=== PATIENT | female | born 1955 | race Caucasian/White ===

== ENCOUNTER 2023-07-08 14:22 | Observation (INO) | payer MEDICARE, OTHER ==
[2023-07-08] MEDS ORDERED: SODIUM CHLORIDE 0.9% 1,000 ML IV STA (15:16)
[2023-07-08] MEDS ORDERED: ACETAMINOPHEN TAB 500 MG TAB PO STA (15:17)
[2023-07-08 15:45] LABS: Basophils % (A) 1 %; Eosinophils # (A) 0.1 k/uL (0-0.7); Eosinophils % (A) 2 %; HCT 33.5 % (34.0-46.0); HGB 11.2 gm/dL (11.4-16.0); Lymphocytes # (A) 0.8 k/uL (1.0-4.8); Lymphocytes % (A) 20 %; MCH 34.1 pg (25.0-35.0); MCHC 33.4 g/dL (31.0-37.0); Macrocytosis Slight; Mean Platelet Volume 8.3; Monocytes # (A) 0.3 k/uL (0-1.0); Monocytes % (A) 7 %; Neutrophils % (A) 70 %; Platelet Count 164 k/uL (150-450); RBC 3.29 m/uL (3.80-5.40); RDW 12.8 % (11.5-15.5); WBC 4.3 k/uL (3.8-10.6)
--- NOTE | 2023-07-08 15:51 | XR ---
EXAMINATION TYPE: XR tibia fibula RT DATE OF EXAM: 07/08/2023 3:28 PM CLINICAL INDICATION:Female, 67 years old with history of trauma, dog bite. COMPARISON: None. TECHNIQUE: The right tibia/fibula was examined in AP and lateral projections. FINDINGS: No evidence of any acute osseous pathology, joint dislocation, or osseous erosion. Large so ft tissue defect noted involving the posterior leg. No evidence of retained radiopaque foreign body. IMPRESSION: 1. No evidence of acute osseous process. 2. Large residual soft tissue defect involving the posterior leg without evidence of retained radiopa que foreign body.
[2023-07-08 15:56] LABS: ALT 18 U/L (4-34); AST 26 U/L (14-36); African American GFR (CKD) 62 (>60 ml/min/1.73 sqM); Albumin 4.1 g/dL (3.5-5.0); Alkaline Phosphatase 50 U/L (38-126); Anion Gap 10 mmol/L; Blood Urea Nitrogen 18 mg/dL (7-17); Calcium 9.3 mg/dL (8.4-10.2); Carbon Dioxide 26 mmol/L (22-30); Chloride 105 mmol/L (98-107); Glucose 96 mg/dL (74-99); INR 0.9 (<1.2); Non-African American GFR(CKD) 54 (>60 ml/min/1.73 sqM); Partial Thromboplastin Time 22.3 sec (22.0-30.0); Potassium 4.6 mmol/L (3.5-5.1); Prothrombin Time 9.7 sec (9.0-12.0); Sodium 141 mmol/L (137-145); Total Bilirubin 0.6 mg/dL (0.2-1.3); Total Protein 6.7 g/dL (6.3-8.2)
[2023-07-08 15:58] LABS: Appearance,Urine Clear (Clear); Bilirubin,Urine Negative (Negative); Blood,Urine Negative (Negative); Color,Urine Colorless; Glucose,Urine (UA) Negative (Negative); Ketones,Urine Negative (Negative); Leukocyte Esterase,Urine Negative (Negative); Nitrite,Urine Negative (Negative); PH, Urine 7.5 (5.0-8.0); Protein,Urine Negative (Negative); Specific Gravity,Urine 1.005 (1.001-1.035); Urobilinogen,Urine <2.0 mg/dL (<2.0)
[2023-07-08] MEDS ORDERED: LIDOCAINE 2%-EPI 1:100,000 20 ML VIAL SQ STA (16:26)
--- NOTE | 2023-07-08 16:37 | P.PN ---
Progress Note - Text Progress Note Date: 07/08/23 Spoke with ED about pt. They will wash and provisionally close wound. We will plan on OR tomorrow for wash and definitive closure or temporization with wound vac for plastic surgery definitive closure. [email or web address] Cont abx. Pain control as needed.
[2023-07-08] MEDS ORDERED: HYDROmorphone 1 MG/ML 1 ML SYRINGE IVP STA (16:59)
[2023-07-08] MEDS ORDERED: BACITRACIN OINT 1 EACH PACKET TOPICAL ONE (18:38)
--- NOTE | 2023-07-08 18:57 | ED ---
Animal Bite HPI - General Chief Complaint: Animal Bite Stated Complaint: Dog bite Time Seen by Provider: 07/08/23 14:52 Source: patient Mode of arrival: ambulatory Limitations: no limitations - History of Present Illness Initial Comments: 67-year-old female presented to the ED with a chief complaint of dog bite. Patient states this afternoon was going to her friend's house when her friend's dog became protective over something and ended up biting the patient's right calf. Was initially evaluated at [facility] however was sent here due to to concerns with needing surgical management. Patient was provided a gram of Rocephin at that facility and tetanus was also updated. No other injuries at this time. Dog was vaccinated for rabies. No other complaints. - Related Data Home Medications Medication Instructions Recorded Confirmed Clopidogrel [Plavix] 75 mg PO DAILY 07/08/23 07/08/23 Simvastatin [Zocor] 40 mg PO HS 07/08/23 07/08/23 Vitamin C(Unknown Dose) 1 tab PO DAILY 07/08/23 07/08/23 Vitamin D3(Unknown Dose) 1 tab PO DAILY 07/08/23 07/08/23 allopurinoL [Zyloprim] 300 mg PO DAILY 07/08/23 07/08/23 busPIRone HCL 15 mg PO BID 07/08/23 07/08/23 traMADol HCL 50 mg PO HS 07/08/23 07/08/23 Allergies Allergy/AdvReac Type Severity Reaction Status Date / Time codeine AdvReac Nausea & Verified 07/08/23 16:11 Vomiting Review of Systems ROS Statement: Those systems with pertinent positive or pertinent negative responses have been documented in the HPI. ROS Other: All systems not noted in ROS Statement are negative. Past Medical History Additional Past Medical History / Comment(s): Aortic bypass History of Any Multi-Drug Resistant Organisms: None Reported Past Psychological History: No Psychological Hx Reported Smoking Status: Never smoker Past Alcohol Use History: None Reported Past Drug Use History: None Reported General Exam Limitations: no limitations General appearance: alert, in no apparent distress Head exam: Present: atraumatic, normocephalic Neck exam: Present: normal inspection Respiratory exam: Present: normal lung sounds bilaterally Cardiovascular Exam: Present: regular rate, normal rhythm Extremities exam: Present: other (Strength and sensation at the distal right lower extremity intact. Patient does have partial skin avulsion of the right calf measuring approximately 10 x 6 x 4 x 4 cm with significant soft tissue involvement. Gastrocnemius easily viewable however able to plantar and dorsiflex without difficulty.) Neurological exam: Present: alert, oriented X3 Skin exam: Present: warm, dry Course Vital Signs 07/08/23 07/08/23 07/08/23 14:36 15:47 16:01 Temperature 98.2 F 98.1 F Pulse Rate 84 65 59 L Respiratory 18 18 17 Rate Blood Pressure 113/53 116/52 116/49 O2 Sat by Pulse 98 98 98 Oximetry 07/08/23 07/08/23 07/08/23 17:00 17:15 18:45 Temperature Pulse Rate 72 74 61 Respiratory 16 17 17 Rate Blood Pressure 117/49 135/64 115/60 O2 Sat by Pulse 99 98 96 Oximetry Procedures - Laceration Laceration #1 Description: flap, avulsion, irregular Depth: involves muscle layer Sedation/Analgesia: none Anesthetic Used: lidocaine 2%, with epi Anesthesia Technique: local infiltration Amount (mls): 12 Pre-repair: wound explored, irrigated extensively Type of Sutures: nylon Size of Sutures: 4-0 Number of Sutures: 27 Technique: simple, interrupted Patient Tolerated Procedure: well, no complications Additional Comments: She had wound loosely approximated. Tolerated well with no complications. Medical Decision Making - Medical Decision Making Was pt. sent in by a medical professional or institution ([facility], TRACTOR EXPERT, urgent care, hospital, or care home...) When possible be specific @ -[facility] Did you speak to anyone other than the patient for history (EMS, parent, family, police, friend...)? What history was obtained from this source @ -No Did you review nursing and triage notes (agree or disagree)? Why? @ -I reviewed and agree with nursing and triage notes Were old charts reviewed (outside hosp., previous admission, EMS record, old EKG , old radiological studies, urgent care reports/EKG's, care home records)? Report findings @ -Charts from [facility] reviewed. For further details please see HPI. Differential Diagnosis (chest pain, altered mental status, abdominal pain women, abdominal pain men, vaginal bleeding, weakness, fever, dyspnea, syncope, headache, dizziness, GI bleed, back pain, seizure, CVA, palpatations, mental health, musculoskeletal)? @ -Differential Musculoskeletal Muscular strain, contusion, ligament sprain, fracture, arthritis, septic arthritis, bursitis, cellulitis, muscle spasm, nerve compression, DVT, arterial occlusion, herpes zoster, electrolyte abnormality, tumor.... This is not meant to be in all inclusive list EKG interpreted by me (3pts min.). @ -None done at this time. Ordered X-rays interpreted by me (1pt min.). @ -X-ray showed no evidence of fracture however did show soft tissue defect. No foreign objects visualized on x-ray. CT interpreted by me (1pt min.). @ -None done U/S interpreted by me (1pt. min.). @ -None done What testing was considered but not performed or refused? (CT, X-rays, U/S, labs)? Why? @ -None What meds were considered but not given or refused? Why? @ -None Did you discuss the management of the patient with other professionals (professionals i.e. , PA, TRACTOR EXPERT, lab, RT, psych nurse, social services coordinator, taker off, teacher, policy officer, pillowcase folder)? Give summary @ -Case discussed with Jh Candelario PA-C of orthopedic surgery, who advised speaking to general surgery. Spoke to Dr. Aviles, who advised speaking to orthopedic surgery. Spoke to Dr. Landeros of orthopedic surgery, who advised wash out and loose approximation in the ER. Will in the patient to the OR tomorrow for formal washout and debridement. Was smoking cessation discussed for >3mins.? @ -No Was critical care preformed (if so, how long)? @ -No Were there social determinants of health that impacted care today? How? (Homelessness, low income, unemployed, alcoholism, drug addiction, transportation, low edu. Level, literacy, decrease access to med. care, usp, rehab)? @ -No Was there de-escalation of care discussed even if they declined (Discuss DNR or withdrawal of care, Hospice)? DNR status @ -No What co-morbidities impacted this encounter? (DM, HTN, Smoking, COPD, CAD, Cancer, CVA, ARF, Chemo, Hep., AIDS, mental health diagnosis, sleep apnea, morbid obesity)? @ -None Was patient admitted / discharged? Hospital course, mention meds given and route, prescriptions, significant lab abnormalities, going to OR and other pertinent info. @ -Admission 67-year-old female presenting from [facility] after dog bite to right calf. Sent to this facility due to needing surgical intervention. Tetanus was updated at that facility. Also was given 1 g of Rocephin there. Patient had wound irrigated thoroughly here in the ER with iodine solution mixed with sterile saline and additional sterile saline irrigation. Laceration loosely approximated and covered with antibiotic ointment and dressed. Provided 2 g of Ancef here. Will be admitted to surgical services for formal washout and debridement tomorrow. Discussed plan of care with patient who is in agreement. Undiagnosed new problem with uncertain prognosis? @ -No Drug Therapy requiring intensive monitoring for toxicity (Heparin, Nitro, Insulin, Cardizem)? @ -No Were any procedures done? @ -Yes, please see procedure note. Diagnosis/symptom? @ -Dog bite to right calf Acute, or Chronic, or Acute on Chronic? @ -Acute Uncomplicated (without systemic symptoms) or Complicated (systemic symptoms)? @ -Complicated Side effects of treatment? @ -No Exacerbation, Progression, or Severe Exacerbation? @ -No Poses a threat to life or bodily function? How? (Chest pain, [place], [place], pneumonia, PE, COPD, DKA, ARF, appy, cholecystitis, CVA, Diverticulitis, Homicidal, Suicidal, threat to staff... and all critical care pts) @ -No - Lab Data Result diagrams: 07/08/23 15:34 07/08/23 15:34 Lab Results 07/08/23 07/08/23 07/08/23 Range/Units 15:34 15:34 15:34 WBC 4.3 (3.8-10.6) k/uL RBC 3.29 L (3.80-5.40) m/uL Hgb 11.2 L (11.4-16.0) gm/dL Hct 33.5 L (34.0-46.0) % MCV 102.0 H (80.0-100.0) fL MCH 34.1 (25.0-35.0) pg MCHC 33.4 (31.0-37.0) g/dL RDW 12.8 (11.5-15.5) % Plt Count 164 (150-450) k/uL MPV 8.3 Neutrophils % 70 % Lymphocytes % 20 % Monocytes % 7 % Eosinophils % 2 % Basophils % 1 % Neutrophils # 3.0 (1.3-7.7) k/uL Lymphocytes # 0.8 L (1.0-4.8) k/uL Monocytes # 0.3 (0-1.0) k/uL Eosinophils # 0.1 (0-0.7) k/uL Basophils # 0.0 (0-0.2) k/uL Macrocytosis Slight PT 9.7 (9.0-12.0) sec INR 0.9 (<1.2) APTT 22.3 (22.0-30.0) sec Sodium (137-145) mmol/L Potassium (3.5-5.1) mmol/L Chloride (98-107) mmol/L Carbon Dioxide (22-30) mmol/L Anion Gap mmol/L BUN (7-17) mg/dL Creatinine (0.52-1.04) mg/dL Est GFR (CKD-EPI)AfAm (>60 ml/min/1.73 sqM) Est GFR (CKD-EPI)NonAf (>60 ml/min/1.73 sqM) Glucose (74-99) mg/dL Calcium (8.4-10.2) mg/dL Total Bilirubin (0.2-1.3) mg/dL AST (14-36) U/L ALT (4-34) U/L Alkaline Phosphatase (38-126) U/L Total Protein (6.3-8.2) g/dL Albumin (3.5-5.0) g/dL Urine Color Colorless Urine Appearance Clear (Clear) Urine pH 7.5 (5.0-8.0) Ur Specific [place] 1.005 (1.001-1.035) Urine Protein Negative (Negative) Urine Glucose (UA) Negative (Negative) Urine Ketones Negative (Negative) Urine Blood Negative (Negative) Urine Nitrite Negative (Negative) Urine Bilirubin Negative (Negative) Urine Urobilinogen <2.0 (<2.0) mg/dL Ur Leukocyte Esterase Negative (Negative) Blood Type Blood Type Confirm Blood Type Recheck Bld Type Recheck Status Antibody Screen Spec Expiration Date 07/08/23 07/08/23 07/08/23 Range/Units 15:34 15:45 15:50 WBC (3.8-10.6) k/uL RBC (3.80-5.40) m/uL Hgb (11.4-16.0) gm/dL Hct (34.0-46.0) % MCV (80.0-100.0) fL MCH (25.0-35.0) pg MCHC (31.0-37.0) g/dL RDW (11.5-15.5) % Plt Count (150-450) k/uL MPV Neutrophils % % Lymphocytes % % Monocytes % % Eosinophils % % Basophils % % Neutrophils # (1.3-7.7) k/uL Lymphocytes # (1.0-4.8) k/uL Monocytes # (0-1.0) k/uL Eosinophils # (0-0.7) k/uL Basophils # (0-0.2) k/uL Macrocytosis PT (9.0-12.0) sec INR (<1.2) APTT (22.0-30.0) sec Sodium 141 (137-145) mmol/L Potassium 4.6 (3.5-5.1) mmol/L Chloride 105 (98-107) mmol/L Carbon Dioxide 26 (22-30) mmol/L Anion Gap 10 mmol/L BUN 18 H (7-17) mg/dL Creatinine 1.08 H (0.52-1.04) mg/dL Est GFR (CKD-EPI)AfAm 62 (>60 ml/min/1.73 sqM) Est GFR (CKD-EPI)NonAf 54 (>60 ml/min/1.73 sqM) Glucose 96 (74-99) mg/dL Calcium 9.3 (8.4-10.2) mg/dL Total Bilirubin 0.6 (0.2-1.3) mg/dL AST 26 (14-36) U/L ALT 18 (4-34) U/L Alkaline Phosphatase 50 (38-126) U/L Total Protein 6.7 (6.3-8.2) g/dL Albumin 4.1 (3.5-5.0) g/dL Urine Color Urine Appearance (Clear) Urine pH (5.0-8.0) Ur Specific [place] (1.001-1.035) Urine Protein (Negative) Urine Glucose (UA) (Negative) Urine Ketones (Negative) Urine Blood (Negative) Urine Nitrite (Negative) Urine Bilirubin (Negative) Urine Urobilinogen (<2.0) mg/dL Ur Leukocyte Esterase (Negative) Blood Type A Positive Blood Type Confirm A Positive Blood Type Recheck No Previous Record Bld Type Recheck Status CABO Indicated Antibody Screen NEGATIVE Spec Expiration Date 07/11/20232349 Disposition Clinical Impression: Dog bite Disposition: ADMITTED IP TO THIS [facility] Condition: Good Instructions (If sedation given, give patient instructions): Animal Bite (ED) Referrals: Chirag Silveira MD [Primary Care Provider] - 1-2 days Time of Disposition: 16:21
[2023-07-08] MEDS ORDERED: NALOXONE 0.4 MG/ML 1 ML VIAL IV PRN (19:08)
[2023-07-08] MEDS ORDERED: ONDANSETRON 4 MG/2 ML VIAL IVP PRN (19:08)
[2023-07-08] MEDS ORDERED: ACETAMINOPHEN TAB 325 MG TAB PO PRN (19:08)
[2023-07-08] MEDS ORDERED: HYDROmorphone 2 MG TAB PO PRN (19:08)
[2023-07-08] MEDS ORDERED: HYDROmorphone 0.5 MG/0.5 ML SYRINGE IVP PRN (19:08)
[2023-07-08] MEDS ORDERED: SODIUM CHLORIDE 0.9% 1,000 ML IV SCH (19:15)
--- NOTE | 2023-07-09 07:31 | P.HPOR ---
History of Present Illness H&P Date: 07/09/23 Chief Complaint: Dog bite RLE 67 yo female presented as transfer from [facility] after sustaining a dog bite to her RLE on the posterior aspect of her calf. Due to extensive tissue damage she was sent down for evaluation. she states pain with back behind her right knee pain with the bite was presented backside of her right calf. Denies any numbness or tingling. Denies any other symptoms at this time. She currently takes aspirin and Plavix for her aortic stent. She is otherwise relatively healthy. Review of Systems 14 points review of systems completed and as stated in HPI, all other systems reviewed are negative. Past Medical History Additional Past Medical History / Comment(s): Aortic bypass History of Any Multi-Drug Resistant Organisms: None Reported Past Psychological History: No Psychological Hx Reported Smoking Status: Never smoker Past Alcohol Use History: None Reported Past Drug Use History: None Reported Medications and Allergies Home Medications Medication Instructions Recorded Confirmed Type Clopidogrel [Plavix] 75 mg PO DAILY 07/08/23 07/08/23 History Simvastatin [Zocor] 40 mg PO HS 07/08/23 07/08/23 History Vitamin C(Unknown Dose) 1 tab PO DAILY 07/08/23 07/08/23 History Vitamin D3(Unknown Dose) 1 tab PO DAILY 07/08/23 07/08/23 History allopurinoL [Zyloprim] 300 mg PO DAILY 07/08/23 07/08/23 History busPIRone HCL 15 mg PO BID 07/08/23 07/08/23 History traMADol HCL 50 mg PO HS 07/08/23 07/08/23 History Allergies Allergy/AdvReac Type Severity Reaction Status Date / Time codeine AdvReac Nausea & Verified 07/08/23 16:11 Vomiting Physical Examination Osteopathic Statement: *. No significant issues noted on an osteopathic structural exam other than those noted in the History and Physical/Consult. Physical Exam: -Patient is alert and oriented 3 appears well-nourished well-hydrated is in no acute distress. They do not appear septic. -There is TTP Around the right calf where the bite is - 15 cm curvilinear incision around the right posterior calf secondary to dog bite. Fat and muscle tissue involved. -Upper extremities show [5] out of 5 strength in all major muscle groups. [##EXCEPT] -Lower extremities with [5] out of 5 strength in all major muscle groups right dorsiflexion plantar flexion secondary to pain from the bite -There is [FROM] that is [painless] of the b/l UE and LE in all major joints. negative logroll bilaterally -They are intact to light touch sensation in C5 to T1 and L2 to S1 nerve distribution. -DTR [2]/4 all upper and lower extremities -Patient has palpable distal pulses all 4 ext -Compartments are soft and compressible. -Patient shows a negative Hector's [-Neg Hoffmans b/l] [-Neg Clonus b/l] [-Neg babinski b/l] Cranial nerves II through XII are grossly intact. Results Imaging of the right tib-fib demonstrates no fracture soft tissue disruption posteriorly noted. Alignment stable. - Labs Labs: Abnormal Lab Results - Last 24 Hours (Table) 07/08/23 07/08/23 Range/Units 15:34 15:34 RBC 3.29 L (3.80-5.40) m/uL Hgb 11.2 L (11.4-16.0) gm/dL Hct 33.5 L (34.0-46.0) % MCV 102.0 H (80.0-100.0) fL Lymphocytes # 0.8 L (1.0-4.8) k/uL BUN 18 H (7-17) mg/dL Creatinine 1.08 H (0.52-1.04) mg/dL H & H 07/08/23 Range/Units 15:34 Hgb 11.2 L (11.4-16.0) gm/dL Hct 33.5 L (34.0-46.0) % Coagulation 07/08/23 Range/Units 15:34 INR 0.9 (<1.2) Result Diagrams: 07/08/23 15:34 07/08/23 15:34 Assessment and Plan Assessment: 67-year-old female complex laceration right posterior calf secondary to dog bite Plan: Orthopedic Surgery Risk Review Iva Calhoun is a 67-year-old female presenting for evaluation of sudden onset right posterior calf pain, inability to ambulate after dog bite/attack. It was my pleasure to have seen and examined Iva Calhoun . In our visit today we have had a chance to go over subjective complaints, physical examination findings and treatments including the natural course history without intervention and various interventional options. Her imaging demonstrates soft tissue disruption and posterior calf right no fracture. On physical exam, Iva Calhoun demonstrates pain with motion of right lower extremity secondary to the dog bite and extensive tissue damage, which is NV intact at this time. I have explained to the patient that this fracture needs stabilization. Based on the patients imaging, physical exam, and the rapid progression and disabling nature of her symptoms, at this time I recommend surgery in the form or a: irrigation and debridement right lower extremity with primary closure I discussed the risk and benefits of this procedure at length with Iva Calhoun . Questions were invited and answered, and the patient wishes to proceed as outlined below. Currently, I am recommendin. irrigation and debridement right lower extremity with primary closure 2. Review of surgical risks and benefits as well as an educational packet on the proposed surgical procedure. Risks: All surgical procedures come with inherent risks, including those related to positioning, anesthesia, intraoperative findings, and postoperative complications. It is important to understand that surgery does not come with any guarantee of a successful outcome as complications and adverse events are always possible. The patient was given a handout discussing the surgical procedure and risks associated with the intervention, both of which were discussed with the patient. These risks include but are not limited to the following: - Experiencing same, different or even worse symptoms compared to before surgery. - Requiring further surgery or other forms of treatment presently or at some time in the future . - On an extreme but fortunately relatively rare basis severe complication such as blindness, stroke, heart attack, temporary and/or permanent nerve injury, paralysis, coma, or may occur, sometimes without known explanation. - Surgical complications may include but are not limited to risk of infection, fluid accumulation in the surgical dissection site, including a seroma or hematoma, that requires additional surgery, wound drainage, bleeding, new numbness or weakness, vision changes/loss, spinal fluid leakage, non-healing and/or infected incision, headaches, difficulty or inability to swallow, hoarseness, hemopneumothorax, pneumothorax, injury to nerves, spinal cord, b lood vessels, lymphatics or other vital organs (i.e., bowel injury, injury to the great vessels); heterotopic bone formation; complications related to the hardware such as screws, rods, including misplaced hardware, device failure, hardware fracture/breakage, or hardware loosening; retained surgical instrumentations or devices and the need for further surgery. - Medical risks of the planned surgery include but are not limited to generalized Infections to the whole body or local areas outside of the surgical site (sepsis), heart attack, bleeding, anaphylaxis, meningitis, seizure, e pilepsy, hearing loss, burn allred, laceration of the head or other areas of the body, bruising, hypersensitivity of the skin, bladder over distension; allergic reaction; shoulder injury related to positioning; fat, blood and air clots to other areas of the body like heart, lungs, brain; failure of internal organs such as lungs, kidneys, liver and excessive bleeding. If blood transfusions are necessary, note that transfusions may cause intolerance reactions such as anaphylaxis or other complex reactions. Despite best efforts, the results of surgery might not heal in terms of bone, soft tissues such as skin, fascia, ligaments, and joints. [facility] has multiple operating rooms with single and overlapping rooms running daily. They currently function under the required guidelines as produced by the Senate Finance Committee with regards to the overlapping rooms and will continue to comply with changes to this policy as they occur. The requirements include and are complied with as follows: (1) the critical portions of the overlapping rooms will not occur at the same time, (2) the attending physician will be physically present during the critical portions of the procedu re and immediately available during the entire case, and (3) a back-up attending is designated should the primary attending not be immediately available. The patient has had a chance to review all the listed information, has been given print outs detailing this information, and has had all his/her questions answered to their satisfaction. It was my pleasure to have seen and examined Iva Calhoun . In our visit today we have had a chance to go over my understanding of our patient's current condition, the natural course history without intervention and various inte rventional options. Questions were invited and answered, and the patient wishes to proceed as outlined above. I have seen and examined the patient for 25 minutes and we have spent more than 50% of the time in repeat and detailed counseling about the patient's condition, its natural course history with out and as much as can be predicted with surgery and re-review of various surgical treatment options. In conclusion, Iva Calhoun requested we proceed with the above suggested surgery and are willing to accept risks and limitations of the suggested surgery as nature of the disease process and our best attempts at treatment for the condition. Thank you again for allowing us to be part of your patient's care. Please don't hesitate to contact me if you have any further questions. Signed and authenticated by: Estu[facility] [address], [place] [address] [place] [id number]
[2023-07-09] MEDS: ONDANSETRON 4 MG/2 ML VIAL IVP ONE ×2 (07:40→11:33)
[2023-07-09] MEDS ORDERED: HYDROmorphone (PF) 1 MG/ML ONE (07:46)
[2023-07-09] MEDS ORDERED: ePHEDrine 50 MG/ML 1 ML VIAL ONE (07:46)
[2023-07-09] MEDS ORDERED: LIDOCAINE 2% INJ 20 MG/ML (2 ML VIAL) ONE (07:46)
[2023-07-09] MEDS ORDERED: fentaNYL (PF) 50 MCG/ML 2 ML AMP ONE (07:46)
[2023-07-09] MEDS ORDERED: SUCCINYLCHOLINE CHLORIDE 200 MG/10 ML VIAL IV ONE (07:46)
[2023-07-09] MEDS ORDERED: WATER FOR INJECTION, STERILE 10 ML VIAL IV ONE (07:46)
[2023-07-09] MEDS ORDERED: PROPOFOL 10 MG/ML 20 ML VIAL IV ONE (07:46)
[2023-07-09] MEDS ORDERED: MIDAZOLAM 2 MG/2 ML VIAL ONE (07:46)
[2023-07-09] MEDS ORDERED: LACTATED RINGERS 1,000 ML IV ONE (07:48)
[2023-07-09] MEDS ORDERED: SODIUM CHLORIDE 0.9% 100 ML with ceFAZolin 2,000 MG IV ONE ×2 (08:11)
[2023-07-09] MEDS ORDERED: ceFAZolin 3,000 MG in SODIUM CHLORIDE 0.9% IRRIGATIO 3,000 ML IRRIGATION ONE (08:12)
[2023-07-09] MEDS ORDERED: GENTAMICIN 80 MG in SODIUM CHLORIDE 0.9% IRRIGATIO 3,000 ML IRRIGATION ONE (08:12)
--- NOTE | 2023-07-09 09:13 | P.OP ---
Date of Procedure: 07/09/23 Preoperative Diagnosis: 1.dog bite/attack right lower extremity 2. Right posterior calf complex laceration involving skin soft tissue and muscle Postoperative Diagnosis: same Procedure(s) Performed: 1. Excisional debridement right lower extremity posterior calf 12 x 10 x 5 cm using the following - skin knife was used to excise necrotic tissue skin soft tissue and muscle - curet was used to scrape the edges - skin knife was used to trephinate skin for tension release. 2. Complex closure 3 layers right posterior calf 12 x 10 x 5 cm Implants: None Anesthesia: GETA Surgeon: Estuardo Landeros Estimated Blood Loss (ml): 20 IV fluids (ml): 500 Urine output (ml): 0 Pathology: none sent Condition: stable Disposition: PACU Indications for Procedure: Iva Calhoun is a 67-year-old female presenting for evaluation of sudden onset right posterior calf pain, inability to ambulate after dog bite/attack. It was my pleasure to have seen and examined Iva Calhoun . In our visit today we have had a chance to go over subjective complaints, physical examination findings and treatments including the natural course history without intervention and various interventional options. Her imaging demonstrates soft tissue disruption and posterior calf right no fracture. On physical exam, Iva Calhoun demonstrates pain with motion of right lower extremity secondary to the dog bite and extensive tissue damage, which is NV intact at this time. I have explained to the patient that this fracture needs stabilization. Based on the patients imaging, physical exam, and the rapid progression and disabling nature of her symptoms, at this time I recommend surgery in the form or a: irrigation and debridement right lower extremity with primary closure I discussed the risk and benefits of this procedure at length with Iva Calhoun . Questions were invited and answered, and the patient wishes to proceed as outlined below. Currently, I am recommendin. irrigation and debridement right lower extremity with primary closure Description of Procedure: The patient was seen and examined in the preoperative area. All preoperative protocols were followed. Informed consent was obtained risks and benefits of the procedure were discussed at length. Risks including bleeding infection damage to the surrounding tissue and risk of reoperation were discussed with the patient. Risk of anesthesia up to and including was a discussed with the patient. These are outlined in the risk reviewed. They were willing to accept these risks and all of the risks of surgery. The patient was given a weight- based dose of antibiotics in the form of Ancef 2 g. The patient was seen and evaluated by the anesthesia team who deemed them fit for surgery. The site was marked, the patient was willing to proceed with the procedure. The patient was transferred to the operative suite by the Department of anesthesia. There were then drifted off to sleep by the department of anesthesia and GETA anesthesia was used. Once adequate anesthesia had been obtained the patient was carefully transferred to the operative bed. she was placed in the left lateral decubitus position with a beanbag. All bony prominences were padded accordingly. SCDs were placed on the nonoperative lower extremities. Arms were well padded. Right lower shoulder was exposed and placed on a padding. Preoperative briefing was done with the operative team and everyone was ready for the procedure to start. The patients Right lower extremity was then prepped and draped in the normal sterile fashion. Timeout was then performed and all parties in agreement with the procedure to be performed. bilateral reduction was exposed the previous sutures were removed. There was a large flap of skin on the posterior aspect of the calf that was essentially necrotic and is taking and this was removed using a skin knife. Skin edges were then freshened. Necrotic tissue was removed with a skin knife through skin soft tissue and muscle. Muscle fascia was violated but muscle fibers were mostly intact. No vascular or nervous issue can be identified. The wound was explored. It was then thoroughly irrigated with high flow low pressure irrigant in the form of 3 L of Ancef irrigation followed with 3 L of gentamicin irrigation. 3 L of normal sterile saline. Once irrigation was completed the skin was trephinated to release pressure. A complex closure was then performed 3 layer first on the fascia and then the deep subcu tissue subcu tissue followed by skin 0 Vicryl 2-0 Vicryl and 2-0 nylon was used for wound edges approximated very well. The wound was then cleaned and dried was then dressed sterilely with Adaptic 4 x 4's ABDs and overwrapped with web roll and an Bennie wrap. The patient was then transferred back to their hospital bed. There were awakened by department of anesthesia having tolerated the procedure very well with no complications. The patient was then transported to the postoperative care unit in stable condition.
[2023-07-09 09:14] VITALS: TEMP 98.2
[2023-07-09] MEDS ORDERED: HYDROmorphone 0.5 MG/0.5 ML SYRINGE IVP ONE ×2 (09:14→09:33)
[2023-07-09] MEDS ORDERED: AMPICILLIN-SULBACTAM 3 GM in SODIUM CHLORIDE 0.9% 100 ML IVPB SCH (09:15)
[2023-07-09] MEDS ORDERED: HYDROcodone/APAP 5-325MG 1 EACH TAB ONE (10:23)
--- NOTE | 2023-07-09 11:38 | P.CONS ---
History of Present Illness - History of Present Illness Patient was discharged before seen by our service and was appropriately discha rged on Augmentin. Past Medical History Additional Past Medical History / Comment(s): Aortic bypass History of Any Multi-Drug Resistant Organisms: None Reported Past Psychological History: No Psychological Hx Reported Smoking Status: Never smoker Past Alcohol Use History: None Reported Past Drug Use History: None Reported Medications and Allergies Home Medications Medication Instructions Recorded Confirmed Type Clopidogrel [Plavix] 75 mg PO DAILY 07/08/23 07/08/23 History Simvastatin [Zocor] 40 mg PO HS 07/08/23 07/08/23 History Vitamin C(Unknown Dose) 1 tab PO DAILY 07/08/23 07/08/23 History Vitamin D3(Unknown Dose) 1 tab PO DAILY 07/08/23 07/08/23 History allopurinoL [Zyloprim] 300 mg PO DAILY 07/08/23 07/08/23 History busPIRone HCL 15 mg PO BID 07/08/23 07/08/23 History traMADol HCL 50 mg PO HS 07/08/23 07/08/23 History Amoxicillin/Potassium Clav 1 each PO BID #28 tab 07/09/23 Rx [Amox-Clav 875-125 mg Tablet] HYDROcodone/APAP 5-325MG [[place] 1 tab PO Q6HR PRN #18 tab 07/09/23 Rx 5-325] Allergies Allergy/AdvReac Type Severity Reaction Status Date / Time codeine AdvReac Nausea & Verified 07/08/23 16:11 Vomiting Physical Exam Vitals: Vital Signs Temp Pulse Pulse Pulse Resp BP BP 07/09/23 10:25 92 18 140/65 07/09/23 09:59 66 16 128/62 07/09/23 09:56 68 16 142/60 07/09/23 09:41 63 16 125/60 07/09/23 09:26 64 18 143/63 07/09/23 09:11 68 18 131/58 07/09/23 08:56 98.2 F 80 16 153/59 07/09/23 07:30 97.9 F 82 16 121/60 07/09/23 07:16 70 18 104/54 07/09/23 03:00 68 18 100/48 07/08/23 23:00 68 18 115/53 07/08/23 19:31 55 L 18 102/50 07/08/23 18:45 61 17 115/60 07/08/23 17:15 74 17 135/64 07/08/23 17:00 72 16 117/49 07/08/23 16:01 59 L 17 116/49 07/08/23 15:47 98.1 F 65 18 116/52 07/08/23 14:36 98.2 F 84 18 113/53 Pulse Ox 07/09/23 10:25 97 07/09/23 09:59 99 07/09/23 09:56 98 07/09/23 09:41 98 07/09/23 09:26 100 07/09/23 09:11 100 07/09/23 08:56 100 07/09/23 07:30 100 07/09/23 07:16 97 07/09/23 03:00 98 07/08/23 23:00 98 07/08/23 19:31 97 07/08/23 18:45 96 07/08/23 17:15 98 07/08/23 17:00 99 07/08/23 16:01 98 07/08/23 15:47 98 07/08/23 14:36 98 Intake and Output 07/08/23 07/09/23 07/09/23 22:59 06:59 14:59 Intake Total 904 Output Total 20 Balance 884 Intake: IV 904 Output: Estimated Blood Loss 20 Other: Weight 58.967 kg Results CBC & Chem 7: 07/08/23 15:34 07/08/23 15:34 Labs: Abnormal Lab Results - Last 24 Hours (Table) 07/08/23 07/08/23 Range/Units 15:34 15:34 RBC 3.29 L (3.80-5.40) m/uL Hgb 11.2 L (11.4-16.0) gm/dL Hct 33.5 L (34.0-46.0) % MCV 102.0 H (80.0-100.0) fL Lymphocytes # 0.8 L (1.0-4.8) k/uL BUN 18 H (7-17) mg/dL Creatinine 1.08 H (0.52-1.04) mg/dL
[2023-07-09 12:27] VITALS: BP 106/54; PULSE 60; RESP 16
--- NOTE | 2023-07-20 07:34 | P.DS ---
Providers Date of admission: 07/08/23 19:10 Attending physician: Estuardo Landeros DO Consults: 07/08/23 19:08 Consult Physician Urgent Consulting Provider: Swati Wilde Consult Reason/Comments: Dog bite r leg Do you want consulting provider notified?: Yes Primary care physician: IGNACIO Hospital Course: Uneventful Assessment: Dog bite posterior right calf, skin soft tissue and muscle involvement. Health Concerns: None Pertinent Studies: XRay of RLE showing no fractures. Procedures: Right LE I&D with complex closure of wound. Patient Condition at Discharge: Good Plan - Discharge Summary New Discharge Prescriptions: New Amoxicillin/Potassium Clav [Amox-Clav 875-125 mg Tablet] 1 each PO BID #28 tab HYDROcodone/APAP 5-325MG [[place] 5-325] 1 tab PO Q6HR PRN #18 tab PRN Reason: Pain Continue Clopidogrel [Plavix] 75 mg PO DAILY No Action traMADol HCL 50 mg PO HS Simvastatin [Zocor] 40 mg PO HS Vitamin D3(Unknown Dose) 1 tab PO DAILY Vitamin C(Unknown Dose) 1 tab PO DAILY busPIRone HCL 15 mg PO BID allopurinoL [Zyloprim] 300 mg PO DAILY Discharge Medication List Clopidogrel [Plavix] 75 mg PO DAILY 07/08/23 [History] Simvastatin [Zocor] 40 mg PO HS 07/08/23 [History] Vitamin C(Unknown Dose) 1 tab PO DAILY 07/08/23 [History] Vitamin D3(Unknown Dose) 1 tab PO DAILY 07/08/23 [History] allopurinoL [Zyloprim] 300 mg PO DAILY 07/08/23 [History] busPIRone HCL 15 mg PO BID 07/08/23 [History] traMADol HCL 50 mg PO HS 07/08/23 [History] Amoxicillin/Potassium Clav [Amox-Clav 875-125 mg Tablet] 1 each PO BID #28 tab 1 [Rx] HYDROcodone/APAP 5-325MG [[place] 5-325] 1 tab PO Q6HR PRN #18 tab 07/09/23 [Rx] Follow up Appointment(s)/Referral(s): Estuardo Landeros DO [Doctor of Osteopathic Medicine] - 2 Weeks Chirag Silveira MD [Primary Care Provider] - 1-2 days Ambulatory/Diagnostic Orders: Eddie [DME.AMB1] Location: None Selected Patient Instructions/Handouts: *Surgery [facility] - (Anesthesia) Discharge Instructions Outpatient Surgery, Animal Bite (ED) Activity/Diet/Wound Care/Special Instructions: 1. non-weightbearing RLE; use walker 2. keep incision clean, dry intact 3. pain meds as needed 4. resume plavix at home 5. antibiotics as prescribed. take all until finished 6. follow up dolly Landeros in office in 2 weeks. 7. contact [facility] with any quiestions: [phone] Discharge Disposition: HOME SELF-CARE
== END 2023-07-09 12:05 | disposition home or self-care (01) ==
LOC: EC 14:22 → 4SSUR 19:10
PROVIDERS: ADMIT Orthopaedic Surgery; ATTEND Orthopaedic Surgery
DX: S81.811A Laceration without foreign body, right lower leg, initial encounter (principal); W54.0XXA Bitten by dog, initial encounter; Z79.02 Long term (current) use of antithrombotics/antiplatelets; Z79.82 Long term (current) use of aspirin; Z79.899 Other long term (current) drug therapy; Z88.5 Allergy status to narcotic agent
CPT/HCPCS: 96365; 96375; 99284; 36415; 93005; 86900; 86901; 80053; 85025; 85610; 85730; 86850; 81003; 87070; 87205; 87075; 73590; 11043; 11046 ×5; 13121; 13122; G0378 ×2; J2250; J0330; J1580; J0690 ×2; J2405; J3010; J1170 ×3; J2704; J2001